=== PATIENT | female | born 1940 | race Caucasian/White ===

== ENCOUNTER 2017-04-23 10:55 | Inpatient (IN) | payer OTHER ==
[~2017-04-23] VITALS: Ht 167.6 cm; Wt 90.6 kg
[2017-04-23] MEDS ORDERED: HYZAAR 50-121 TABLET PO (11:13)
[2017-04-23] MEDS ORDERED: MAGNESIUM250 MG PO (11:13)
[2017-04-23] MEDS ORDERED: VALTREX1000 MG PO (11:14)
[2017-04-23 12:02] LABS: HEMATOCRIT 36.8 % (36.0-46.0); HEMOGLOBIN 12.3 G/DL (11.9-15.5); MCH 31.2 PG (29.0-34.0); MCHC 33.4 G/DL (30.0-36.0); MCV 93.4 FL (83-99); PLATELET COUNT 259 K/uL (156-360); RBC DIS.WIDTH-CV 12.3 % (11.8-14.6); RBC DIS.WIDTH-SD 42.4 % (39-53); RED BLOOD COUNT 3.94 M/uL (3.80-5.20); WHITE BLOOD COUNT 10.6 K/uL (4.1-10.2)
[2017-04-23 12:06] LABS: CHLORIDE 105 mEq/L (99-109); POTASSIUM 3.9 mEq/L (3.7-5.4); SODIUM 140 mEq/L (136-147)
[2017-04-23 12:08] LABS: GLUCOSE 117 mg/dL (70-99)
[2017-04-23 12:12] LABS: CREATININE 0.8 mg/dL (0.6-1.3); GFR ESTIMATE (CALCULATED) > 59 mL/min/; UREA NITROGEN (BUN) 13 mg/dL (9-23)
[2017-04-23 13:15] LABS: APPEARANCE CLEAR ((CLEAR)); BILIRUBIN NEGATIVE; BLOOD NEGATIVE; COLOR YELLOW ((YELLOW)); GLUCOSE (STRIP) NEGATIVE; KETONES 20; LEUKOCYTES TRACE; NITRITE NEGATIVE; PROTEIN (STRIP) 30; SPECIFIC GRAVITY 1.026 (1.000-1.030); UROBILINOGEN 0.2 MG/DL (0.2-1.0)
[2017-04-23 13:19] LABS: BACTERIA NONE SEEN /HPF; EPITHELIAL CELLS NONE SEEN /HPF; MUCUS TRACE /LPF; RED BLOOD CELLS 0-5 /HPF (0-5)
[2017-04-23] MEDS ORDERED: VITAMIN D31000 UNIT PO (14:30)
[2017-04-23] MEDS ORDERED: ACETAMINOPHEN1 EAC4 PO (14:31)
[2017-04-23] MEDS ORDERED: SYSTANE BALANCE10 ML BOTH EYES (14:32)
[2017-04-23 15:45] VITALS: BP 144/82
[2017-04-23 19:28] VITALS: BP 134/68
[2017-04-23 23:49] VITALS: BP 123/67
[2017-04-24 04:31] VITALS: BP 154/69
[2017-04-24 04:39] LABS: HEMATOCRIT 34.9 % (36.0-46.0); HEMOGLOBIN 11.6 G/DL (11.9-15.5); MCH 31.4 PG (29.0-34.0); MCHC 33.2 G/DL (30.0-36.0); MCV 94.3 FL (83-99); PLATELET COUNT 232 K/uL (156-360); RBC DIS.WIDTH-CV 12.2 % (11.8-14.6); RBC DIS.WIDTH-SD 42.2 % (39-53); WHITE BLOOD COUNT 7.9 K/uL (4.1-10.2)
[2017-04-24 04:54] LABS: ALBUMIN 3.5 g/dL (3.2-4.8); CHLORIDE 106 mEq/L (99-109); SODIUM 140 mEq/L (136-147)
[2017-04-24 04:56] LABS: GLUCOSE 98 mg/dL (70-99); TOTAL PROTEIN 6.8 g/dL (6.4-8.3)
[2017-04-24 04:58] LABS: TOTAL BILIRUBIN 0.6 mg/dL (0.0-1.0)
[2017-04-24 05:00] LABS: ALKALINE PHOSPHATASE 93 IU/L (3-129); CREATININE 0.8 mg/dL (0.6-1.3); GFR ESTIMATE (CALCULATED) > 59 mL/min/
[2017-04-24 05:01] LABS: UREA NITROGEN (BUN) 12 mg/dL (9-23)
[2017-04-24 05:02] LABS: AST (GOT) 14 IU/L (2-34)
[2017-04-24 05:03] LABS: ALT (GPT) 9 IU/L (3-49)
[2017-04-24 08:04] LABS: INTER. NORMALIZED RATIO 1.4
[2017-04-24 08:06] LABS: PTT 29.2 SEC (25-37)
[2017-04-24 08:32] VITALS: BP 144/71
[2017-04-24 16:34] VITALS: BP 121/59
[2017-04-24 19:32] VITALS: BP 119/57
[2017-04-25 00:28] VITALS: BP 140/66
[2017-04-25 05:46] LABS: BASOPHIL (%) 0.3 % (0-1); EOSINOPHIL (%) 0.8 % (0-5); EOSINOPHIL COUNT 0.1 K/uL (0-0.3); HEMATOCRIT 31.6 % (36.0-46.0); HEMOGLOBIN 10.6 G/DL (11.9-15.5); IMMATURE GRANULOCYTE (%) 0.5 % (0.0-0.7); LYMPHOCYTE (%) 19.9 % (15-42); LYMPHOCYTE COUNT 1.5 K/uL (1.0-2.8); MCH 31.4 PG (29.0-34.0); MCHC 33.5 G/DL (30.0-36.0); MCV 93.5 FL (83-99); MONOCYTE (%) 6.2 % (3-12); MONOCYTE COUNT 0.5 K/uL (0-0.8); NEUTROPHIL (%) 72.3 % (45-76); NEUTROPHIL COUNT 5.3 K/uL (1.8-6.4); PLATELET COUNT 253 K/uL (156-360); RBC DIS.WIDTH-CV 12.2 % (11.8-14.6); RBC DIS.WIDTH-SD 42.2 % (39-53); RED BLOOD COUNT 3.38 M/uL (3.80-5.20); WHITE BLOOD COUNT 7.3 K/uL (4.1-10.2)
[2017-04-25 06:10] LABS: ALBUMIN 2.9 G/DL (3.2-4.8); ALKALINE PHOSPHATASE 83 IU/L (3-129); ALT (GPT) 7 IU/L (3-49); AST (GOT) 12 IU/L (2-34); CHLORIDE 105 MEQ/L (99-109); CREATININE 0.6 MG/DL (0.6-1.3); GFR ESTIMATE (CALCULATED) > 59 mL/min/; GLUCOSE 104 mg/dL (70-99); SODIUM 137 MEQ/L (136-147); TOTAL BILIRUBIN 0.7 MG/DL (0.0-1.0); UREA NITROGEN (BUN) 7 mg/dL (9-23)
[2017-04-25 06:12] LABS: TOTAL PROTEIN 5.7 G/DL (6.4-8.3)
[2017-04-25 08:28] VITALS: BP 119/63
[2017-04-25 08:37] LABS: MAGNESIUM 1.7 mg/dl (1.3-2.7)
[2017-04-25 12:53] LABS: C DIFF TOXIN NEGATIVE (NEGATIVE)
[2017-04-25 15:58] VITALS: BP 145/69
[2017-04-25 19:45] VITALS: BP 110/71
[2017-04-26 05:29] LABS: CHLORIDE 105 MEQ/L (99-109); CREATININE 0.6 MG/DL (0.6-1.3); GFR ESTIMATE (CALCULATED) > 59 mL/min/; GLUCOSE 106 mg/dL (70-99); POTASSIUM 3.4 MEQ/L (3.7-5.4); SODIUM 138 MEQ/L (136-147); UREA NITROGEN (BUN) 6 mg/dL (9-23)
[2017-04-26 08:35] VITALS: BP 118/65
[2017-04-26 09:19] LABS: BASOPHIL (%) 0.2 % (0-1); EOSINOPHIL (%) 1.2 % (0-5); EOSINOPHIL COUNT 0.1 K/uL (0-0.3); HEMATOCRIT 34.2 % (36.0-46.0); HEMOGLOBIN 11.4 G/DL (11.9-15.5); IMMATURE GRANULOCYTE (%) 0.8 % (0.0-0.7); LYMPHOCYTE (%) 10.9 % (15-42); MCH 31.1 PG (29.0-34.0); MCHC 33.3 G/DL (30.0-36.0); MCV 93.4 FL (83-99); MONOCYTE (%) 5.7 % (3-12); MONOCYTE COUNT 0.5 K/uL (0-0.8); NEUTROPHIL (%) 81.2 % (45-76); NEUTROPHIL COUNT 7.7 K/uL (1.8-6.4); PLATELET COUNT 323 K/uL (156-360); RBC DIS.WIDTH-CV 12.4 % (11.8-14.6); RBC DIS.WIDTH-SD 42.8 % (39-53); RED BLOOD COUNT 3.66 M/uL (3.80-5.20); WHITE BLOOD COUNT 9.4 K/uL (4.1-10.2)
[2017-04-26] MEDS ORDERED: LEVAQUIN750 MG PO (12:55)
[2017-04-26] MEDS ORDERED: FLAGYL500 MG PO (12:55)
[2017-04-26 15:57] VITALS: BP 114/61
[2017-04-27 00:08] VITALS: BP 115/56
[2017-04-27 05:31] LABS: CHLORIDE 103 MEQ/L (99-109); CREATININE 0.6 MG/DL (0.6-1.3); GFR ESTIMATE (CALCULATED) > 59 mL/min/; GLUCOSE 102 mg/dL (70-99); POTASSIUM 3.3 MEQ/L (3.7-5.4); SODIUM 139 MEQ/L (136-147); UREA NITROGEN (BUN) 6 mg/dL (9-23)
[2017-04-27 08:27] LABS: MAGNESIUM 1.6 mg/dl (1.3-2.7)
[2017-04-27 08:29] VITALS: BP 129/69
[2017-04-27] MEDS ORDERED: MORPHINE SULFAT15 M1 PO (10:01)
== END 2017-04-27 13:50 | disposition home health service (06) | DRG 392 ==
LOC: EME 10:55 → EDOF 14:23 → ENRESERV 14:25 → EDOF 14:28 → 3EAST 14:41 → EDOF 14:41 → ENRESERV 14:52 → 3EAST 15:24
PROVIDERS: Physician Assistant; Radiology Diagnostic Radiology; Student in an Organized Health Care Education/Training Program; Surgery
PROC: 0W9G30Z Drainage of Peritoneal Cavity with Drainage Device, Percutaneous Approach (ICD-10-PCS; principal; 2017-04-25)
DX: K57.20 Diverticulitis of large intestine with perforation and abscess without bleeding (principal); E87.6 Hypokalemia; E78.5 Hyperlipidemia, unspecified; I10 Essential (primary) hypertension; M81.0 Age-related osteoporosis without current pathological fracture; E78.00 Pure hypercholesterolemia, unspecified; E66.9 Obesity, unspecified; Z85.828 Personal history of other malignant neoplasm of skin; Z87.891 Personal history of nicotine dependence; Z68.32 Body mass index [BMI] 32.0-32.9, adult; Z88.0 Allergy status to penicillin; Z88.7 Allergy status to serum and vaccine
CPT/HCPCS: 36415; 49406; 74177; 80048; 80053; 81003; 82150; 83690; 83735; 85025; 85027; 85610; 85730; 87070; 87075; 87076; 87205; 87493; 99281; 99284; C1769; J1650; J1885; J1956; J3010; J3480; J7040; J7120; S0030

== ENCOUNTER → 2017-05-10 | Outpatient (CLI) | payer OTHER, MEDICARE ==
[~2017-05-10] MED LIST: ACETAMINOPHEN1 EAC4 PO; FLAGYL500 MG PO; HYZAAR 50-121 TABLET PO; LEVAQUIN750 MG PO; MAGNESIUM250 MG PO; MORPHINE SULFAT15 M1 PO; PERCOCET 5/31 TABLET PO; SYSTANE BALANCE10 ML BOTH EYES; VALTREX1000 MG PO; VITAMIN D31000 UNIT PO
== END | disposition home or self-care (01) ==
LOC: EDSTATUS 10:00 → OPR 10:00
PROC: 0DPDX0Z Removal of Drainage Device from Lower Intestinal Tract, External Approach (ICD-10-PCS; principal; 2017-05-10)
DX: T85.628A Displacement of other specified internal prosthetic devices, implants and grafts, initial encounter (principal); K57.20 Diverticulitis of large intestine with perforation and abscess without bleeding; Y84.8 Other medical procedures as the cause of abnormal reaction of the patient, or of later complication, without mention of misadventure at the time of the procedure
CPT/HCPCS: 74176

== ENCOUNTER 2017-09-13 14:17 | Observation (INO) | payer OTHER, MEDICARE ==
[~2017-09-13] VITALS: Ht 167.6 cm; Wt 86.1 kg
[2017-09-13 15:07] LABS: BASOPHIL (%) 0.4 % (0-1); EOSINOPHIL (%) 0.6 % (0-5); EOSINOPHIL COUNT 0.1 K/uL (0-0.3); HEMATOCRIT 40.4 % (36.0-46.0); HEMOGLOBIN 13.5 G/DL (11.9-15.5); IMMATURE GRANULOCYTE (%) 0.4 % (0.0-0.7); LYMPHOCYTE COUNT 2.5 K/uL (1.0-2.8); MCH 32.1 PG (29.0-34.0); MCHC 33.4 G/DL (30.0-36.0); MONOCYTE (%) 4.8 % (3-12); MONOCYTE COUNT 0.4 K/uL (0-0.8); NEUTROPHIL (%) 64.8 % (45-76); NEUTROPHIL COUNT 5.5 K/uL (1.8-6.4); PLATELET COUNT 195 K/uL (156-360); RBC DIS.WIDTH-CV 13.6 % (11.8-14.6); RBC DIS.WIDTH-SD 48.6 % (39-53); RED BLOOD COUNT 4.21 M/uL (3.80-5.20); WHITE BLOOD COUNT 8.5 K/uL (4.1-10.2)
[2017-09-13 15:16] LABS: INTER. NORMALIZED RATIO 1.1
[2017-09-13 15:19] LABS: CHLORIDE 107 mEq/L (99-109); POTASSIUM 3.9 mEq/L (3.7-5.4); SODIUM 141 mEq/L (136-147)
[2017-09-13 15:21] LABS: GLUCOSE 104 mg/dL (70-99)
[2017-09-13 15:25] LABS: CREATININE 0.9 mg/dL (0.6-1.3); GFR ESTIMATE (CALCULATED) > 59 mL/min/; UREA NITROGEN (BUN) 18 mg/dL (9-23)
[2017-09-13 17:25] LABS: TROP-I INTERPRETATION NEGATIVE; TROPONIN-I < 0.01 ng/mL (0.0-0.30)
[2017-09-13] MEDS ORDERED: ICY HOT CREAM35.4 G1 TP (17:36)
[2017-09-13] MEDS ORDERED: TYLENOL EXTRA500 MG PO (17:37)
[2017-09-13 20:07] LABS: ALBUMIN 4.1 g/dL (3.2-4.8)
[2017-09-13 20:09] LABS: TOTAL PROTEIN 7.2 g/dL (6.4-8.3)
[2017-09-13 20:11] LABS: TOTAL BILIRUBIN 0.6 mg/dL (0.0-1.0)
[2017-09-13 20:12] LABS: ALKALINE PHOSPHATASE 73 IU/L (3-129)
[2017-09-13 20:15] LABS: ALT (GPT) 17 IU/L (3-49); AST (GOT) 21 IU/L (2-34); DIRECT BILIRUBIN 0.2 mg/dL (0.0-0.3)
[2017-09-13 20:32] VITALS: BP 158/82
[2017-09-13 22:34] LABS: APPEARANCE CLEAR ((CLEAR)); BILIRUBIN NEGATIVE; BLOOD NEGATIVE; COLOR STRAW ((YELLOW)); GLUCOSE (STRIP) NEGATIVE; KETONES 5; LEUKOCYTES NEGATIVE; NITRITE NEGATIVE; PROTEIN (STRIP) NEGATIVE; SPECIFIC GRAVITY 1.038 (1.000-1.030); UCUL ADDED? NO; UROBILINOGEN 0.2 MG/DL (0.2-1.0)
[2017-09-13 23:10] VITALS: BP 130/70
[2017-09-14 01:16] LABS: TROP-I INTERPRETATION NEGATIVE; TROPONIN-I < 0.01 ng/mL (0.0-0.30)
[2017-09-14 03:40] VITALS: BP 123/62
[2017-09-14 06:09] LABS: BASOPHIL (%) 0.5 % (0-1); EOSINOPHIL (%) 1.6 % (0-5); EOSINOPHIL COUNT 0.1 K/uL (0-0.3); HEMATOCRIT 38.5 % (36.0-46.0); HEMOGLOBIN 12.6 G/DL (11.9-15.5); IMMATURE GRANULOCYTE (%) 0.5 % (0.0-0.7); LYMPHOCYTE (%) 40.6 % (15-42); LYMPHOCYTE COUNT 2.3 K/uL (1.0-2.8); MCHC 32.7 G/DL (30.0-36.0); MCV 97.7 FL (83-99); MONOCYTE (%) 7.3 % (3-12); MONOCYTE COUNT 0.4 K/uL (0-0.8); NEUTROPHIL (%) 49.5 % (45-76); NEUTROPHIL COUNT 2.8 K/uL (1.8-6.4); PLATELET COUNT 172 K/uL (156-360); RBC DIS.WIDTH-CV 13.8 % (11.8-14.6); RBC DIS.WIDTH-SD 49.7 % (39-53); RED BLOOD COUNT 3.94 M/uL (3.80-5.20); WHITE BLOOD COUNT 5.6 K/uL (4.1-10.2)
[2017-09-14 06:22] LABS: TROP-I INTERPRETATION NEGATIVE; TROPONIN-I < 0.01 ng/mL (0.0-0.30)
[2017-09-14 06:25] LABS: ALBUMIN 3.6 G/DL (3.2-4.8); ALKALINE PHOSPHATASE 63 IU/L (3-129); ALT (GPT) 12 IU/L (3-49); AST (GOT) 16 IU/L (2-34); CHLORIDE 106 MEQ/L (99-109); CREATININE 0.7 MG/DL (0.6-1.3); DIRECT BILIRUBIN 0.1 mg/dL (0.0-0.3); GFR ESTIMATE (CALCULATED) > 59 mL/min/; GLUCOSE 92 mg/dL (70-99); POTASSIUM 3.8 MEQ/L (3.7-5.4); SODIUM 141 MEQ/L (136-147); TOTAL BILIRUBIN 0.6 MG/DL (0.0-1.0); TOTAL PROTEIN 6.1 G/DL (6.4-8.3); UREA NITROGEN (BUN) 16 mg/dL (9-23)
[2017-09-14 07:45] VITALS: BP 142/74; BP 146/77; BP 170/68
[2017-09-14 12:48] LABS: TROP-I INTERPRETATION NEGATIVE; TROPONIN-I < 0.01 ng/mL (0.0-0.30)
== END 2017-09-14 14:30 | disposition home or self-care (01) ==
LOC: EME 14:17 → 4SOUTH 17:31 → EDOF 17:31 → 4SOUTH 20:04
PROVIDERS: Emergency Medicine; Hospitalist
PROC: B246ZZZ Ultrasonography of Right and Left Heart (ICD-10-PCS; principal; 2017-09-14)
DX: R55 Syncope and collapse (principal); I10 Essential (primary) hypertension; I70.0 Atherosclerosis of aorta; E78.5 Hyperlipidemia, unspecified; M85.80 Other specified disorders of bone density and structure, unspecified site; M19.90 Unspecified osteoarthritis, unspecified site; R79.1 Abnormal coagulation profile; Z87.891 Personal history of nicotine dependence; Z80.1 Family history of malignant neoplasm of trachea, bronchus and lung; Z83.49 Family history of other endocrine, nutritional and metabolic diseases; Z88.0 Allergy status to penicillin; Z88.1 Allergy status to other antibiotic agents; Z88.7 Allergy status to serum and vaccine; Z85.828 Personal history of other malignant neoplasm of skin
CPT/HCPCS: 70450; 71045; 71275; 73502; 80048; 80076; 81003; 83880; 84484; 85025; 85379; 85610; 93005; 93306; 99281; 99285; G0378